=== PATIENT | male | born 1945 | race African-American/Black ===

== ENCOUNTER → 2018-04-16 | Outpatient (REF) | payer MEDICARE ==
[~2018-04-16] MED LIST: FISH OIL300 MG OR; LISINOPRIL/HYDR1 TA1 PO; OMEPRAZOLE20 MG; SIMVASTATIN40 MG OR; VERAPAMIL240 M1 PO
== END | disposition home or self-care (01) ==
LOC: LAB 07:20
PROVIDERS: ATTEND Urology
DX: R97.20 Elevated prostate specific antigen [PSA] (principal)

== ENCOUNTER 2020-10-13 08:29 | Day surgery (SDC) | payer MEDICARE ==
[~2020-10-13] VITALS: Ht 175.3 cm; Wt 99.8 kg
[~2020-10-13 08:29] MED LIST changes: +ADLT ASA LOW81 MG PO; +LISINOP/HCTZ1 TA1 PO; -LISINOPRIL/HYDR1 TA1 PO; -OMEPRAZOLE20 MG; +OMEPRAZOLE20 MG PO; +TAMSULOSIN0.4 MG PO
[2020-10-13 11:32] VITALS: BP 146/83
== END 2020-10-13 13:15 | disposition home or self-care (01) ==
LOC: ORM 08:29
PROVIDERS: ATTEND Urology
PROC: 0VB03ZX Excision of Prostate, Percutaneous Approach, Diagnostic (ICD-10-PCS; principal; 2020-10-13)
PROC: BV49ZZZ Ultrasonography of Prostate and Seminal Vesicles (ICD-10-PCS; 2020-10-13)
PROC: 0T9B70Z Drainage of Bladder with Drainage Device, Via Natural or Artificial Opening (ICD-10-PCS; 2020-10-13)
DX: N40.1 Benign prostatic hyperplasia with lower urinary tract symptoms (principal); N13.8 Other obstructive and reflux uropathy; I10 Essential (primary) hypertension; K21.9 Gastro-esophageal reflux disease without esophagitis; R33.9 Retention of urine, unspecified; Z98.890 Other specified postprocedural states

== ENCOUNTER 2020-10-13 16:50 | Emergency (ER) | payer MEDICARE ==
[~2020-10-13] VITALS: Ht 175.3 cm; Wt 108.0 kg
[2020-10-13 18:42] LABS: URINE BILIRUBIN - DIPSTICK NEGATIVE (NEGATIVE); URINE BLOOD DIPSTICK LARGE (NEGATIVE); URINE COLOR YELLOW; URINE GLUCOSE - DIPSTICK NEGATIVE (NEGATIVE); URINE KETONE NEGATIVE (NEGATIVE); URINE LEUK ESTERASE NEGATIVE (NEGATIVE); URINE PH 5.5 (4.5-8.0); URINE PROTEIN - DIPSTICK TRACE mg/dL (NEG-TRACE); URINE UROBILINOGEN - DIPSTICK 0.2 E.U./dL (0.2)
[2020-10-13 18:46] LABS: URINE NITRITE - DIPSTICK NEGATIVE (Negative)
[2020-10-13 18:50] LABS: URINE RBC 50-100 RBC/hpf (0-5)
[2020-10-13 19:31] VITALS: BP 161/74
== END 2020-10-13 19:40 | disposition home or self-care (01) ==
LOC: ED 16:50
PROVIDERS: Emergency Medicine
PROC: 0T9B70Z Drainage of Bladder with Drainage Device, Via Natural or Artificial Opening (ICD-10-PCS; principal; 2020-10-13)
DX: R33.9 Retention of urine, unspecified (principal); I10 Essential (primary) hypertension; Z98.890 Other specified postprocedural states

== ENCOUNTER 2022-03-07 17:44 | Emergency (ER) | payer MEDICARE ==
[2022-03-07] VITALS (9 sets, daily range): BP systolic 101–138; BP diastolic 42–72
[~2022-03-07] VITALS: Ht 175.3 cm; Wt 127.0 kg
[2022-03-07 19:55] LABS: BASO% 0.1 % (0-3); HEMATOCRIT 39.7 % (39.0-50.0); HEMOGLOBIN 13.2 g/dl (14.0-18.0); IMMATURE GRANULOCYTES 0.4 % (0.0-5.0); LYMPH% 5.4 % (15-41); MEAN CELL VOLUME 86.3 fL CALC (80.0-100.0); MEAN CORPUSCULAR HGB 28.7 pG CALC (26.0-32.0); MEAN CORPUSCULAR HGB CONC 33.2 g/dL CAL (32.0-36.0); MONO% 10.5 % (2-13); NEUT# 17.05 thou/uL (1.82-7.42); NEUT% 83.6 % (42-76); RED BLOOD COUNT 4.6 mill/uL (4.70-6.10); RED CELL DISTRI WIDTH 13.1 % (11.5-15.5)
[2022-03-07 20:08] LABS: ALBUMIN 4.4 g/dL (3.2-5.0); ALKALINE PHOSPHATASE 93 u/l (38-126); ANION GAP 12 (6-22 (CALC)); BUN 17 mg/dL (8-23); BUN/CREATININE RATIO 14 (12-20 (CALC)); CARBON DIOXIDE 27 mmol/l (22-30); CHLORIDE 102 mmol/l (95-108); CREATININE 1.2 mg/dL (0.7-1.3); GFR FOR AFR.AMER. > 60 ML/MIN (>=60 (CALC)); GFR OTHER RACES 59 ML/MIN (>=60 (CALC)); POTASSIUM 3.5 mmol/l (3.5-5.1); SGOT/AST 52 u/l (19-48); SODIUM 137 mmol/l (137-146); TOTAL PROTEIN 8.2 g/dL (6.3-8.2)
[2022-03-07 20:12] LABS: BILIRUBIN, TOTAL 0.6 mg/dL (0.0-1.4)
[2022-03-07 21:06] LABS: URINE BILIRUBIN - DIPSTICK NEGATIVE (NEGATIVE); URINE BLOOD DIPSTICK MODERATE (NEGATIVE); URINE COLOR YELLOW; URINE GLUCOSE - DIPSTICK NEGATIVE (NEGATIVE); URINE KETONE NEGATIVE (NEGATIVE); URINE LEUK ESTERASE NEGATIVE (NEGATIVE); URINE PROTEIN - DIPSTICK NEGATIVE (NEG-TRACE); URINE SPECIFIC GRAVITY 1.025
[2022-03-07 21:07] LABS: URINE NITRITE - DIPSTICK NEGATIVE (Negative)
[2022-03-07 21:15] LABS: URINE WBC 0-2 WBC/hpf (0-5)
[2022-03-07] MEDS ORDERED: KEFLEX500 MG PO (21:19)
--- NOTE | 2022-03-10 08:13 | NUR ---
PRELIMINARY BLOOD CULTURE SHOWS GRAM (+) COCCI IN 2/4 VIALS. CALLED PATIENT AND HE REPORTS FEELING MUCH BETTER BUT STILL INTERMITTENT FEVERS TREATED WITH TYLENOL. PER ED PHYSICIAN REQUEST, ENCOURAGED PATIENT TO REPORT TO [facility] ER FOR FURTHER EVALUATION. PATIENT WAS AGREEABLE.
== END 2022-03-07 21:57 | disposition home or self-care (01) ==
LOC: ED 17:44
PROVIDERS: Emergency Medicine
DX: B34.9 Viral infection, unspecified (principal); D72.829 Elevated white blood cell count, unspecified; I10 Essential (primary) hypertension; Z20.822 Contact with and (suspected) exposure to COVID-19

== ENCOUNTER 2022-03-10 12:13 | Observation (INO) | payer MEDICARE ==
[~2022-03-10] VITALS: Ht 175.3 cm; Wt 107.0 kg
[2022-03-10] VITALS (10 sets, daily range): BP systolic 121–140; BP diastolic 47–72
[~2022-03-10 12:13] MED LIST changes: +KEFLEX500 MG PO
[2022-03-10 13:44] LABS: BASO% 0.2 % (0-3); EOS% 0.5 % (0-8); HEMATOCRIT 38.4 % (39.0-50.0); HEMOGLOBIN 12.8 g/dl (14.0-18.0); IMMATURE GRANULOCYTES 0.2 % (0.0-5.0); LYMPH% 14.6 % (15-41); MEAN CELL VOLUME 85.5 fL CALC (80.0-100.0); MEAN CORPUSCULAR HGB 28.5 pG CALC (26.0-32.0); MEAN CORPUSCULAR HGB CONC 33.3 g/dL CAL (32.0-36.0); MONO% 11.8 % (2-13); NEUT# 11.95 thou/uL (1.82-7.42); NEUT% 72.7 % (42-76); RED BLOOD COUNT 4.49 mill/uL (4.70-6.10)
[2022-03-10 13:53] LABS: ALKALINE PHOSPHATASE 78 u/l (38-126); ANION GAP 9 (6-22 (CALC)); BILIRUBIN, TOTAL 0.7 mg/dL (0.0-1.4); BUN 16 mg/dL (8-23); BUN/CREATININE RATIO 13 (12-20 (CALC)); CARBON DIOXIDE 30 mmol/l (22-30); CHLORIDE 98 mmol/l (95-108); CREATININE 1.2 mg/dL (0.7-1.3); GFR FOR AFR.AMER. > 60 ML/MIN (>=60 (CALC)); GFR OTHER RACES 59 ML/MIN (>=60 (CALC)); POTASSIUM 3.1 mmol/l (3.5-5.1); SGOT/AST 55 u/l (19-48); SODIUM 134 mmol/l (137-146); TOTAL PROTEIN 8.4 g/dL (6.3-8.2)
[2022-03-11 04:07] VITALS: BP 142/64
[2022-03-11 05:40] LABS: HEMATOCRIT 34.3 % (39.0-50.0); HEMOGLOBIN 11.7 g/dl (14.0-18.0); MEAN CORPUSCULAR HGB 29.3 pG CALC (26.0-32.0); MEAN CORPUSCULAR HGB CONC 34.1 g/dL CAL (32.0-36.0); RED BLOOD COUNT 3.99 mill/uL (4.70-6.10); RED CELL DISTRI WIDTH 13.1 % (11.5-15.5)
[2022-03-11 05:52] LABS: ALBUMIN 3.3 g/dL (3.2-5.0); ALKALINE PHOSPHATASE 72 u/l (38-126); ANION GAP 10 (6-22 (CALC)); BILIRUBIN, TOTAL 0.5 mg/dL (0.0-1.4); CARBON DIOXIDE 28 mmol/l (22-30); CHLORIDE 99 mmol/l (95-108); POTASSIUM 3.1 mmol/l (3.5-5.1); SGOT/AST 44 u/l (19-48); SODIUM 134 mmol/l (137-146); TOTAL PROTEIN 6.8 g/dL (6.3-8.2)
[2022-03-11 05:57] LABS: BUN 14 mg/dL (8-23); BUN/CREATININE RATIO 13 (12-20 (CALC)); CREATININE 1.1 mg/dL (0.7-1.3); GFR FOR AFR.AMER. > 60 ML/MIN (>=60 (CALC)); GFR OTHER RACES > 60 ML/MIN (>=60 (CALC))
[2022-03-11 06:44] VITALS: BP 135/62
[2022-03-11 11:28] VITALS: BP 135/62
[2022-03-11 19:38] VITALS: BP 130/71
[2022-03-12 00:14] VITALS: BP 134/53
[2022-03-12 04:33] VITALS: BP 134/57
[2022-03-12 06:20] LABS: BASO% 0.2 % (0-3); EOS% 1.1 % (0-8); HEMATOCRIT 34.3 % (39.0-50.0); HEMOGLOBIN 11.4 g/dl (14.0-18.0); IMMATURE GRANULOCYTES 0.5 % (0.0-5.0); LYMPH% 18.8 % (15-41); MEAN CORPUSCULAR HGB 28.6 pG CALC (26.0-32.0); MEAN CORPUSCULAR HGB CONC 33.2 g/dL CAL (32.0-36.0); MONO% 15.1 % (2-13); NEUT# 7.1 thou/uL (1.82-7.42); NEUT% 64.3 % (42-76); RED BLOOD COUNT 3.99 mill/uL (4.70-6.10); RED CELL DISTRI WIDTH 13.2 % (11.5-15.5)
[2022-03-12 06:29] LABS: ALBUMIN 3.6 g/dL (3.2-5.0); ALKALINE PHOSPHATASE 79 u/l (38-126); ANION GAP 9 (6-22 (CALC)); BILIRUBIN, TOTAL 0.5 mg/dL (0.0-1.4); BUN 14 mg/dL (8-23); BUN/CREATININE RATIO 13 (12-20 (CALC)); CARBON DIOXIDE 29 mmol/l (22-30); CHLORIDE 101 mmol/l (95-108); GFR FOR AFR.AMER. > 60 ML/MIN (>=60 (CALC)); GFR OTHER RACES > 60 ML/MIN (>=60 (CALC)); POTASSIUM 3.2 mmol/l (3.5-5.1); SGOT/AST 42 u/l (19-48); SODIUM 136 mmol/l (137-146); TOTAL PROTEIN 7.4 g/dL (6.3-8.2)
[2022-03-12 06:58] VITALS: BP 144/60
[2022-03-12 10:53] VITALS: BP 126/48
[2022-03-12 15:17] VITALS: BP 123/49
[2022-03-12 19:23] VITALS: BP 137/55
[2022-03-13 00:29] VITALS: BP 142/58
[2022-03-13 04:39] VITALS: BP 146/66
[2022-03-13 05:34] LABS: BASO% 0.2 % (0-3); EOS% 1.9 % (0-8); HEMATOCRIT 33.2 % (39.0-50.0); IMMATURE GRANULOCYTES 0.6 % (0.0-5.0); LYMPH% 18.6 % (15-41); MEAN CELL VOLUME 86.5 fL CALC (80.0-100.0); MEAN CORPUSCULAR HGB 28.6 pG CALC (26.0-32.0); MEAN CORPUSCULAR HGB CONC 33.1 g/dL CAL (32.0-36.0); MONO% 13.1 % (2-13); NEUT# 7.87 thou/uL (1.82-7.42); NEUT% 65.6 % (42-76); RED BLOOD COUNT 3.84 mill/uL (4.70-6.10); RED CELL DISTRI WIDTH 13.3 % (11.5-15.5)
[2022-03-13 05:54] LABS: ALBUMIN 3.4 g/dL (3.2-5.0); ALKALINE PHOSPHATASE 75 u/l (38-126); ANION GAP 8 (6-22 (CALC)); BILIRUBIN, TOTAL 0.4 mg/dL (0.0-1.4); BUN 12 mg/dL (8-23); BUN/CREATININE RATIO 12 (12-20 (CALC)); CARBON DIOXIDE 30 mmol/l (22-30); CHLORIDE 102 mmol/l (95-108); GFR FOR AFR.AMER. > 60 ML/MIN (>=60 (CALC)); GFR OTHER RACES > 60 ML/MIN (>=60 (CALC)); POTASSIUM 3.7 mmol/l (3.5-5.1); SGOT/AST 45 u/l (19-48); SODIUM 135 mmol/l (137-146); TOTAL PROTEIN 7.4 g/dL (6.3-8.2)
[2022-03-13 06:25] VITALS: BP 132/64
[2022-03-13 06:54] VITALS: BP 132/64
[2022-03-13 10:03] VITALS: BP 137/64
[2022-03-13] MEDS ORDERED: OMNICEF300 MG PO (10:38)
== END 2022-03-13 13:53 | disposition home or self-care (01) ==
LOC: ED 12:13 → ED-I 14:25 → ED 14:31 → MS2 14:32
PROVIDERS: Family Medicine; Internal Medicine; Nurse Practitioner Family; ADMIT Internal Medicine; ATTEND Internal Medicine
DX: R78.81 Bacteremia (principal); D72.829 Elevated white blood cell count, unspecified; I10 Essential (primary) hypertension; N40.0 Benign prostatic hyperplasia without lower urinary tract symptoms; Z87.891 Personal history of nicotine dependence

== ENCOUNTER 2022-10-22 12:32 | Emergency (ER) | payer MEDICARE ==
[~2022-10-22] VITALS: Ht 175.3 cm; Wt 100.0 kg
[~2022-10-22 12:32] MED LIST changes: +OMNICEF300 MG PO
[2022-10-22] MEDS ORDERED: METHOCARBAMOL500 MG PO (14:48)
[2022-10-22] MEDS ORDERED: MEDDOSEPAK PO (14:48)
[2022-10-22] MEDS ORDERED: DICLOFENAC SODIUM2 % TD (14:48)
[2022-10-22 15:09] VITALS: BP 162/70
== END 2022-10-22 15:23 | disposition home or self-care (01) ==
LOC: ED 12:32
DX: M54.42 Lumbago with sciatica, left side (principal); M17.12 Unilateral primary osteoarthritis, left knee; M47.816 Spondylosis without myelopathy or radiculopathy, lumbar region; I10 Essential (primary) hypertension; E78.00 Pure hypercholesterolemia, unspecified